=== PATIENT | male | born 1955 | race Caucasian/White ===

== ENCOUNTER 2019-11-04 09:25 | Inpatient (IN) | payer MEDICARE, OTHER ==
[2019-11-04 10:20] LABS: Basophils % (A) 0 %; Eosinophils # (A) 0.1 k/uL (0-0.7); Eosinophils % (A) 2 %; HCT 44.3 % (39.0-53.0); HGB 14.5 gm/dL (13.0-17.5); Lymphocytes # (A) 1.5 k/uL (1.0-4.8); Lymphocytes % (A) 27 %; MCH 31.8 pg (25.0-35.0); MCHC 32.8 g/dL (31.0-37.0); MCV 96.8 fL (80.0-100.0); Mean Platelet Volume 6.6; Monocytes # (A) 0.5 k/uL (0-1.0); Monocytes % (A) 8 %; Neutrophils # (A) 3.3 k/uL (1.3-7.7); Neutrophils % (A) 60 %; Platelet Count 206 k/uL (150-450); RBC 4.58 m/uL (4.30-5.90); RDW 12.5 % (11.5-15.5); WBC 5.5 k/uL (3.8-10.6)
[2019-11-04 10:31] LABS: ALT 20 U/L (4-49); AST 27 U/L (17-59); African American GFR (CKD) >90 (>60 ml/min/1.73 sqM); Albumin 3.9 g/dL (3.5-5.0); Alkaline Phosphatase 96 U/L (38-126); Anion Gap 8 mmol/L; Blood Urea Nitrogen 16 mg/dL (9-20); Calcium 8.9 mg/dL (8.4-10.2); Carbon Dioxide 23 mmol/L (22-30); Chloride 104 mmol/L (98-107); Glucose 117 mg/dL (74-99); Magnesium 1.6 mg/dL (1.6-2.3); Non-African American GFR(CKD) >90 (>60 ml/min/1.73 sqM); Phosphorus 2.6 mg/dL (2.5-4.5); Potassium 4.2 mmol/L (3.5-5.1); Sodium 135 mmol/L (137-145); Total Bilirubin 0.5 mg/dL (0.2-1.3)
--- NOTE | 2019-11-04 10:49 | CT ---
EXAMINATION TYPE: CT brain cspine wo con DATE OF EXAM: 11/04/2019 COMPARISON: MRI brain January 20, 2012. HISTORY: Fall injury with headache and neck pain. CT DLP: 1519 mGycm. Automated Exposure Control for Dose Reduction was Utilized. TECHNIQUE: CT scan of the head and cervical spine are performed without contrast. FINDINGS: There are old healed sandy hole or craniotomy defects bilaterally with clips There is no a cute intracranial hemorrhage or midline shift identified. Generalized cerebral atrophy greatest super iorly and areas of low attenuation in the white matter are redemonstrated. Air-fluid level right maxi llary sinus remains present on bilateral mild mucosal thickening. The remainder paranasal sinuses are clear. Globes are intact bilaterally. Cervical spine is visualized in its entirety from C1 through upper thoracic levels and demonstrates s traightened alignment without evidence of acute fracture or dislocation. Prevertebral soft tissue ap pears within normal limits. The C1-C2 articulation is within normal limits on the coronal images. V ertebral body heights are maintained. Disc space heights are fairly well-preserved. Tiny posterior di sc herniation mildly effacing anterior thecal sac at C4-C5 and C5-C6 levels on sagittal and axial jf ges. Thyroid gland is felt within normal limits. Lung apices show no pneumothorax. IMPRESSION: 1. There is no acute fracture or dislocation evident in the cervical spine. 2. No acute intracranial hemorrhage or midline shift is seen. Postsurgical changes with moderate cere bral atrophy and mild chronic small vessel ischemic change redemonstrated.
--- NOTE | 2019-11-04 10:50 | ED ---
General Adult HPI - General Chief complaint: Fall Stated complaint: Fall,head lac,shakey Time Seen by Provider: 11/04/19 09:37 Source: patient, RN notes reviewed, old records reviewed Mode of arrival: wheelchair Limitations: no limitations - History of Present Illness Initial comments: 64 male patient with seizure disorder presents to ED for evaluation of fall. Patient reports that for the 3 weeks or so he has been tremulous in his upper and lower extremities. Also reports that his gait has been off. Patient reports that today he was walking, slipped and fell forward hitting the right side of his head on a counter. He stated he did not lose consciousness. He is not on any blood thinners. Denies any areas of localized pain. Denies any headaches or changes in vision. Has not had a seizure in over 3 months. Systemic: Pt denies fatigue, fever/chills, rash. Pt denies weakness, night sweats, weight loss. Neuro: Pt denies headache, visual disturbances, syncope or pre-syncope. HEENT: Pt denies ocular discharge or irritation, otalgia, rhinorrhea, pharyngitis or notable lymphadenopathy. Cardiopulmonary: Pt denies chest pain, SOB, heart palpitations, dyspnea on exertion. Abdominal/GI: Pt denies abdominal pain, n/v/d. : Pt denies dysuria, burning w/ urination, frequency/urgency. Denies new onset urinary or bowel incontinence. MSK: Pt denies myalgia, loss of strength or function in extremities. Neuro: Pt denies new onset weakness, paresthesias. - Related Data Home Medications Medication Instructions Recorded Confirmed Donepezil HCl [Aricept] 10 mg PO DAILY 11/04/19 11/04/19 Ibuprofen 800 mg PO TID PRN 11/04/19 11/04/19 Lacosamide [Vimpat] 100 mg PO HS 11/04/19 11/04/19 Phenytoin Sodium Extended 100 mg PO DAILY@1200 11/04/19 11/04/19 [Dilantin] Phenytoin Sodium Extended 200 mg PO BID 11/04/19 11/04/19 [Dilantin] levETIRAcetam 2,000 mg PO BID 11/04/19 11/04/19 Allergies Allergy/AdvReac Type Severity Reaction Status Date / Time wasp Allergy Unknown Uncoded 06/01/20 11:27 Review of Systems ROS Statement: Those systems with pertinent positive or pertinent negative responses have been documented in the HPI. ROS Other: All systems not noted in ROS Statement are negative. Past Medical History Past Medical History: Seizure Disorder Additional Past Surgical History / Comment(s): brain surg at 9months old Past Psychological History: No Psychological Hx Reported Smoking Status: Never smoker Past Alcohol Use History: None Reported Past Drug Use History: None Reported General Exam - General Exam Comments Initial Comments: Constitutional: NAD, AOX3, Pt has pleasant affect. HEENT: NC/AT, trachea midline, neck supple, no lymphadenopathy. Posterior pharynx non erythematous, without exudates. External ears appear normal, without discharge. Mucous membranes moist. Eyes PERRLA, EOM intact. There is no scleral icterus. No pallor noted. Cardiopulmonary: RRR, no murmurs, rubs or gallops, no JVD noted. Lungs CTAB in anterior and posterior hartman. No peripheral edema. Abdominal exam: Abdomen soft and non-distended. Abdomen non-tender to palpation in all 4 quadrants. Bowel sounds active in LLQ. No hepatosplenomegaly. No ecchymosis Neuro: CN II-XII intact. Finger to nose is intact. Heel shaver resultant jerking movements. No nuchal rigidity. No raccon eyes, no ervin sign, no hemotympanum. No cervical spinal tenderness. MSK: No posterior calf tenderness bilaterally, homans sign negative bilaterally. Posterior tibialis and radial pulse +2 bilaterally. Sensation intact in upper and lower extremities. Full active ROM in upper and lower extremities, 5/5 stregnth. Limitations: no limitations Course Vital Signs 11/04/19 09:31 Temperature 98.1 F Pulse Rate 65 Respiratory 18 Rate Blood Pressure 168/96 O2 Sat by Pulse 99 Oximetry Medical Decision Making - Medical Decision Making 64 male patient with seizure disorder presents to ED for evaluation of fall. Patient reports that for the 3 weeks or so he has been tremulous in his upper and lower extremities. Also reports that his gait has been off. Patient reports that today he was walking, slipped and fell forward hitting the right side of his head on a counter. He stated he did not lose consciousness. He is not on any blood thinners. Denies any areas of localized pain. Denies any headaches or changes in vision. Has not had a seizure in over 3 months. Patient will signs are stable, afebrile. Physical exam displayed no focal deficit. However patient does have gait instability noted. Finger-nose intact however heel to shaver resultant jerking movements. Laboratory investigations are unremarkable. CT brain without contrast displayed no acute process. Patient administered aspirin will be admitted for possibility of cerebellar disease, posterior CVA. Symptoms have been ongoing for 3 weeks. Case discussed with Dr. Jon. Case accepted by Dr. Sewell. - Lab Data Result diagrams: 11/04/19 09:56 11/04/19 09:56 Lab Results 11/04/19 11/04/19 11/04/19 Range/Units 09:56 09:56 11:30 WBC 5.5 (3.8-10.6) k/uL RBC 4.58 (4.30-5.90) m/uL Hgb 14.5 (13.0-17.5) gm/dL Hct 44.3 (39.0-53.0) % MCV 96.8 (80.0-100.0) fL MCH 31.8 (25.0-35.0) pg MCHC 32.8 (31.0-37.0) g/dL RDW 12.5 (11.5-15.5) % Plt Count 206 (150-450) k/uL Neutrophils % 60 % Lymphocytes % 27 % Monocytes % 8 % Eosinophils % 2 % Basophils % 0 % Neutrophils # 3.3 (1.3-7.7) k/uL Lymphocytes # 1.5 (1.0-4.8) k/uL Monocytes # 0.5 (0-1.0) k/uL Eosinophils # 0.1 (0-0.7) k/uL Basophils # 0.0 (0-0.2) k/uL Sodium 135 L (137-145) mmol/L Potassium 4.2 (3.5-5.1) mmol/L Chloride 104 (98-107) mmol/L Carbon Dioxide 23 (22-30) mmol/L Anion Gap 8 mmol/L BUN 16 (9-20) mg/dL Creatinine 0.82 (0.66-1.25) mg/dL Est GFR (CKD-EPI)AfAm >90 (>60 ml/min/1.73 sqM) Est GFR (CKD-EPI)NonAf >90 (>60 ml/min/1.73 sqM) Glucose 117 H (74-99) mg/dL Calcium 8.9 (8.4-10.2) mg/dL Phosphorus 2.6 (2.5-4.5) mg/dL Magnesium 1.6 (1.6-2.3) mg/dL Total Bilirubin 0.5 (0.2-1.3) mg/dL AST 27 (17-59) U/L ALT 20 (4-49) U/L Alkaline Phosphatase 96 (38-126) U/L Total Protein 7.0 (6.3-8.2) g/dL Albumin 3.9 (3.5-5.0) g/dL Urine Color Light Yellow Urine Appearance Clear (Clear) Urine pH 5.0 (5.0-8.0) Ur Specific [place] 1.008 (1.001-1.035) Urine Protein Negative (Negative) Urine Glucose (UA) Negative (Negative) Urine Ketones Negative (Negative) Urine Blood Negative (Negative) Urine Nitrite Negative (Negative) Urine Bilirubin Negative (Negative) Urine Urobilinogen <2.0 (<2.0) mg/dL Ur Leukocyte Esterase Negative (Negative) Disposition Clinical Impression: Fall, Gait instability Narrative: r/o posterior cva Disposition: ADMITTED IP TO THIS HOSP Condition: Serious Is patient prescribed a controlled substance at d/c from ED?: No Referrals: Manuel Daly MD [Primary Care Provider] - 1-2 days
[2019-11-04 11:46] LABS: Appearance,Urine Clear (Clear); Bilirubin,Urine Negative (Negative); Blood,Urine Negative (Negative); Color,Urine Light Yellow; Glucose,Urine (UA) Negative (Negative); Ketones,Urine Negative (Negative); Leukocyte Esterase,Urine Negative (Negative); Nitrite,Urine Negative (Negative); Protein,Urine Negative (Negative); Specific Gravity,Urine 1.008 (1.001-1.035); Urobilinogen,Urine <2.0 mg/dL (<2.0)
[2019-11-04] MEDS ORDERED: ASPIRIN 325 MG TAB PO STA (13:06)
[2019-11-04] MEDS ORDERED: IBUPROFEN 800 MG TAB PO PRN (16:22)
[2019-11-04] MEDS: levETIRAcetam 500 MG TAB PO SCH (16:49)
[2019-11-04] MEDS ORDERED: PHENYTOIN SODIUM EXTENDED 100 MG CAP PO SCH (17:00)
[2019-11-04] MEDS ORDERED: ALPRAZolam 0.25 MG TAB PO PRN (17:00)
--- NOTE | 2019-11-04 18:01 | HP ---
HISTORY AND PHYSICAL DATE OF SERVICE: 11/04/2019 CHIEF COMPLAINT: Fall and weakness. HISTORY OF PRESENT ILLNESS: This 64-year-old gentleman with a past medical history of multiple medical problems, including history of seizure disorder, had brain surgery when he was 9 months old. The patient had spinal meningitis apparently. The patient also had significant weakness of the right side as well as seizure disorder subsequently. The patient apparently fell about 2 weeks ago. The patient has difficulty and pain in the left arm. The patient also had multiple falls subsequently. The patient came to [facility] and was admitted for evaluation and treatment. A posterior circulation TIA or CVA is being considered. The patient has significant tremors, also. The patient also had some gait instability. Initial evaluation, including cervical spine CT scan which was done in the ER, showed no acute intracranial abnormality. Post-surgical changes with moderate cerebral atrophy and chronic small-vessel ischemia were noted. There is no history of any fever, rigor or chills. No history of headache, loss of consciousness, seizures. No history of contact with COVID-19. PAST MEDICAL HISTORY: The patient's past medical history includes history of seizure disorder, history of brain surgery, which was when the patient was 9 months old for spinal meningitis. HOME MEDICATIONS: 1. Keppra 2 grams p.o. b.i.d. 2. Dilantin 200 mg p.o. b.i.d. 3. Ibuprofen 800 mg t.i.d. p.r.n. 4. Phenytoin 200 mg p.o. daily. 5. Vimpat 100 mg at bedtime. 6. Aricept 10 mg p.o. daily. ALLERGIES: WASPS. FAMILY HISTORY: No history of smoking. SOCIAL HISTORY: No history of smoking. No history of alcohol intake. REVIEW OF SYSTEMS: ENT: As mentioned earlier. CARDIOVASCULAR SYSTEM: No angina, palpitations. RESPIRATORY SYSTEM: No cough, hemoptysis. GI: No nausea, vomiting. : No dysuria or retention. NERVOUS SYSTEM: As mentioned earlier. ALLERGY/IMMUNOLOGY: No asthma, hayfever. MUSCULOSKELETAL: As mentioned earlier. HEMATOLOGY/ONCOLOGY: No history of anemia. ENDOCRINE: No history of diabetes, hypothyroidism. CONSTITUTIONAL: As mentioned earlier. DERMATOLOGY: Negative. RHEUMATOLOGY: Negative. PSYCHIATRY: As mentioned earlier. PHYSICAL EXAMINATION: Patient is alert and oriented x3. Pulse is 64, blood pressure 145/79, respirations 16, temperature 98 degrees, pulse ox 97% on room air. HEENT: Conjunctivae normal. Oral mucosa moist. NECK: No jugular venous distention. No carotid bruit. No lymph node enlargement. CARDIOVASCULAR SYSTEM: S1, S2 muffled. RESPIRATORY SYSTEM: Breath sounds diminished at the bases. A few scattered rhonchi. No crackles. ABDOMEN: Soft, non-tender. No mass palpable. LEGS: No edema. No swelling. Minimal tenderness in the left leg present. Otherwise, diffuse tremors present. Gait dysfunction also present diffusely weak. SKIN: No ulcer, rash, bleeding. JOINTS: No active deforming arthropathy. LYMPHATICS: No lymph node palpable in neck, axillae or groin. LAB INVESTIGATIONS: CBC within normal limits. Sodium 135. Glucose 117. ASSESSMENT: 1. Fall and gait dysfunction. Rule out a posterior circulation stroke or TIA. 2. Hyponatremia. 3. Increased random blood sugar. 4. History of seizure disorder. 5. History of brain surgery at 9 months old. 6. History of spinal meningitis. 7. History of tremors. 8. Post-surgical changes with moderate cerebral atrophy with chronic small-vessel ischemia on the CT scan of the brain. RECOMMENDATIONS AND DISCUSSION: In this 64-year-old gentleman who presented with multiple complex medical issues, we will monitor the patient closely, continue the current medications, continue symptomatic treatment. Will initiate the home medications. Check the seizure levels. Continue the telemetry. Neurology evaluation. Complete neurovascular workup, including 2D echo with doppler and carotid ultrasound. Prognosis guarded because of multiple complex medical issues. We will also obtain a PT/OT evaluation to evaluate the patient for possible ECF rehab. Further recommendations to follow. MMODL / IJN: [id number] /
--- NOTE | 2019-11-04 19:26 | US ---
EXAMINATION TYPE: US carotid duplex BILAT DATE OF EXAM: 11/04/2019 COMPARISON: Correlation CT brain same day CLINICAL HISTORY: 64-year-old male Stroke per order. TECHNIQUE: Carotid duplex ultrasound examination. Indirect Doppler criteria was utilized. FINDINGS: EXAM MEASUREMENTS: RIGHT: Peak Systolic Velocity (PSV) cm/sec ----- Right CCA: 99.8 ----- Right ICA: 109.0 ----- Right ECA: 162.1 ICA/CCA ratio: 1.1 RIGHT: End Diastole cm/sec ----- Right CCA: 16.9 ----- Right ICA: 28.2 ----- Right ECA: 22.3 LEFT: Peak Systolic Velocity (PSV) cm/sec ----- Left CCA: 94.2 ----- Left ICA: 92.7 ----- Left ECA: 158.2 ICA/CCA ratio: 1.0 LEFT: End Diastole cm/sec ----- Left CCA: 18.3 ----- Left ICA: 14.6 ----- Left ECA: 14.4 VERTEBRALS (direction of flow): Right Vertebral: Antegrade Left Vertebral: Antegrade Rhythm: Normal Nurses Assistant notes: Intimal thickening is seen bilateral carotid arteries. Elevated velocities bilater al ECAs. No significant stenosis seen. Minimal hyperechoic plaque seen right carotid bulb. Some prominent lymph nodes along the right neck measuring 2.0 x 1.4 x 0.7 cm and 1.8 x 1.5 x 0.7 cm. Prominent lymph node left side of the neck measuring 1.2 x 0.8 x 0.4 cm IMPRESSION: 1. No hemodynamically significant ICA stenosis on either side. 2. A couple borderline enlarged right-sided cervical lymph nodes measuring up to 1.5 cm short axis. T hese may be reactive/post inflammatory and should be followed clinically. If any enlargement is noted , the area can be rescanned. Criteria for Assigning % of Stenosis / Diameter reduction (Estimation based on the indirect measurements of the internal carotid artery velocities (ICA PSV). 1. Normal (no stenosis)=ICA PSV < 125 cm/s: ratio < 2.0: ICA EDV<40 cm/s. 2. Less than 50% stenosis=ICA PSV < 125 cm/s: ratio < 2.0: ICA EDV<40 cm/s. 3. 50 to 69% stenosis=ICA PSV of 125 to 230 cm/s: ration 2.0 ? 4.0: ICA EDV 40-100 cm/s. 4. Greater than 70% stenosis to near occlusion= ICA PSV > 230 cm/s: ratio > 4.0: ICA EDV > 100 cm/s. 5. Near occlusion= ICA PSV velocities may be low or undetectable: variable ratio and ICA EDV. 6. Total occlusion=unable to detect flow.
[2019-11-04] MEDS ORDERED: LACOSAMIDE 50 MG TABLET PO SCH (21:00)
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
[2019-11-04] MEDS: HEPARIN SODIUM,PORCINE 5,000 UNIT/ML 1 ML VIAL SQ SCH (21:19)
[2019-11-05] MEDS: levETIRAcetam 500 MG TAB PO SCH ×2 (05:50→16:55)
[2019-11-05] MEDS: PANTOPRAZOLE 40 MG TABLET PO SCH (05:50)
[2019-11-05 06:13] LABS: Basophils % (A) 1 %; Eosinophils # (A) 0.1 k/uL (0-0.7); Eosinophils % (A) 3 %; HCT 44.8 % (39.0-53.0); Lymphocytes % (A) 20 %; MCHC 33.5 g/dL (31.0-37.0); MCV 98.5 fL (80.0-100.0); Mean Platelet Volume 6.4; Monocytes # (A) 0.4 k/uL (0-1.0); Monocytes % (A) 8 %; Neutrophils # (A) 3.5 k/uL (1.3-7.7); Neutrophils % (A) 68 %; Platelet Count 190 k/uL (150-450); RBC 4.55 m/uL (4.30-5.90); RDW 12.7 % (11.5-15.5); WBC 5.1 k/uL (3.8-10.6)
[2019-11-05 06:34] LABS: African American GFR (CKD) >90 (>60 ml/min/1.73 sqM); Anion Gap 7 mmol/L; Blood Urea Nitrogen 16 mg/dL (9-20); Calcium 9.1 mg/dL (8.4-10.2); Carbon Dioxide 24 mmol/L (22-30); Chloride 101 mmol/L (98-107); Glucose 116 mg/dL (74-99); Non-African American GFR(CKD) >90 (>60 ml/min/1.73 sqM); Potassium 4.2 mmol/L (3.5-5.1); Sodium 132 mmol/L (137-145)
[2019-11-05 06:58] LABS: Phenytoin (Dilantin) 32.9 ug/mL
[2019-11-05 07:21] LABS: Cholesterol 228 mg/dL (<200); HDL Cholesterol 79 mg/dL (40-60); LDL Cholesterol,Calculated 130 mg/dL (0-99); Triglycerides 94 mg/dL (<150)
[2019-11-05] MEDS ORDERED: DONEPEZIL 10 MG TAB PO SCH (09:00)
[2019-11-05] MEDS ORDERED: LACOSAMIDE 50 MG TABLET PO SCH (09:00)
[2019-11-05] MEDS: HEPARIN SODIUM,PORCINE 5,000 UNIT/ML 1 ML VIAL SQ SCH ×2 (09:42→20:02)
[2019-11-05] MEDS ORDERED: PHENYTOIN SODIUM EXTENDED 100 MG CAP PO SCH (12:00)
[2019-11-05] MEDS ORDERED: ASPIRIN 325 MG TAB PO SCH (12:00)
--- NOTE | 2019-11-05 17:04 | P.PN ---
Subjective Progress Note Date: 11/05/19 Patient states his balance has improved. He was able to walk to the bathroom on his own. No seizures. Objective - Vital Signs Vital signs: Vital Signs Temp 97.3 F L 11/05/19 16:00 Pulse 72 11/05/19 16:00 Resp 16 11/05/19 16:00 BP 177/66 11/05/19 16:00 Pulse Ox 95 11/05/19 16:00 Intake & Output 11/04/19 11/05/19 11/05/19 18:59 06:59 18:59 Output Total 1000 Balance -1000 Weight 98.883 kg 97.5 kg Output: Urine 1000 Straight 1000 Other: Voiding Method Toilet Urinal - Exam Patient's mentation is normal. Still has nystagmus looking to the right. Still with mild ataxia, better than yesterday. - Labs CBC & Chem 7: 11/05/19 05:32 11/05/19 05:32 Labs: Abnormal Lab Results - Last 24 Hours (Table) 11/04/19 11/05/19 Range/Units 09:56 05:32 Sodium 132 L (137-145) mmol/L Glucose 116 H (74-99) mg/dL Cholesterol 228 H (<200) mg/dL LDL Cholesterol, Calc 130 H (0-99) mg/dL HDL Cholesterol 79 H (40-60) mg/dL Phenytoin 36.2 H* 32.9 H* ug/mL Assessment and Plan Assessment: * Dilantin toxicity * Long-standing history of localization-related epilepsy. Plan: * Hold off on Dilantin, we will check daily Dilantin levels. Today the level is 32.9. * Patient will be resumed on Dilantin 200 mg twice a day, once his levels comes <20. * Continue same dose of Keppra and Vimpat for now. * Patient is a fall risk due to Dilantin toxicity. * Carotid Doppler showed no stenosis. * B12 770, folate levels 11.0. * We will follow.
--- NOTE | 2019-11-05 18:00 | ECHOF ---
Referral Reason:Stroke MEASUREMENTS -------- HEIGHT: 165.1 cm WEIGHT: 97.1 kg BP: 167/79 IVSd: 1.4 cm (0.6 - 1.1) LVIDd: 3.4 cm (3.9 - 5.3) LVPWd: 1.5 cm (0.6 - 1.1) IVSs: 1.5 cm LVIDs: 2.4 cm LVPWs: 1.7 cm RVIDd: 3.2 cm (< 3.3) LAESV Index (A-L): 35.15 ml/m Ao Diam: 3.2 cm (2.0 - 3.7) AV Cusp: 1.7 cm (1.5 - 2.6) EPSS: 1.0 cm MV E Guillermo: 0.42 m/s MV DecT: 277 ms MV A Guillermo: 0.63 m/s MV E/A Ratio: 0.67 RAP: 5.00 mmHg RVSP: 16.70 mmHg MV EF SLOPE: 57.62 mm/s (70 - 150) MV EXCURSION: 15.27 mm (> 18.000) FINDINGS -------- Sinus rhythm. This was a technically difficult study with suboptimal apical views. The left ventricular size is normal. There is moderate concentric left ventricular hypertrophy. O verall left ventricular systolic function is normal with, an EF between 55 - 60 %. The diastolic fi lling pattern is normal for the age of the patient 7.39. The right ventricle is normal in size. LA is moderately dilated 34-39 ml/m2 The right atrial size is normal. 5.0mg of Lumason was utilized for enhancement of images Interatrial and interventricular septum intact. The aortic valve is trileaflet and appears structurally normal. There is no evidence of aortic regu rgitation. There is no evidence of aortic stenosis. Uxwf-oo-wppihgwy mitral regurgitation is present. Mild tricuspid regurgitation present. There is no evidence of pulmonary hypertension. The right v entricular systolic pressure, as measured by Doppler, is 16.70mmHg. There is no pulmonic regurgitation present. The aortic root size is normal. IVC Not well visulized. There is no pericardial effusion. CONCLUSIONS -------- 1. Sinus rhythm. 2. This was a technically difficult study with suboptimal apical views. 3. The left ventricular size is normal. 4. There is moderate concentric left ventricular hypertrophy. 5. Overall left ventricular systolic function is normal with, an EF between 55 - 60 %. 6. The diastolic filling pattern is normal for the age of the patient 7.39 7. The right ventricle is normal in size. 8. LA is moderately dilated 34-39 ml/m2 9. The right atrial size is normal. 10. 5.0mg of Lumason was utilized for enhancement of images 11. Interatrial and interventricular septum intact. 12. The aortic valve is trileaflet and appears structurally normal. 13. There is no evidence of aortic regurgitation. 14. There is no evidence of aortic stenosis. 15. [id number]-wgpmtfdr mitral regurgitation is present. 16. Mild tricuspid regurgitation present. 17. There is no evidence of pulmonary hypertension. 18. The right ventricular systolic pressure, as measured by Doppler, is 16.70mmHg. 19. There is no pulmonic regurgitation present. 20. The aortic root size is normal. 21. IVC Not well visulized. 22. There is no pericardial effusion. TRAVEL PROFESSIONAL: Vero Gomez RDCS
[2019-11-05] MEDS: DONEPEZIL 10 MG TAB PO SCH (20:02)
[2019-11-05] MEDS: LACOSAMIDE 50 MG TABLET PO SCH (20:03)
--- NOTE | 2019-11-05 22:54 | P.PN ---
Progress Note - Text Progress Note Date: 11/05/19 Presenting complaint: Recurrent falls Interval history: This is [address] simms who presented with rather shaky jittery and falling. Patient is found to be in Dilantin toxicity. It was held. Today-pain sitting up. Tolerating a breakfast. Bit shaky and jittery. Dilantin levels are starting to come down. Review of systems: Was done for constitutional, cardiovascular, GI, pulmonary. Neurological relevant finding as above Active Medications Alprazolam (Xanax) 0.25 mg PO TID PRN PRN Reason: Anxiety Aspirin (Aspirin) 325 mg PO DAILY [facility] Last Admin: 11/05/19 16:55 Dose: Not Given Documented by: Donepezil HCl (Aricept) 10 mg PO [facility] Last Admin: 11/05/19 20:02 Dose: Not Given Documented by: Heparin Sodium (Porcine) (Heparin) 5,000 unit SQ Q12HR [facility] Last Admin: 11/05/19 20:02 Dose: Not Given Documented by: Ibuprofen (Motrin) 800 mg PO TID PRN PRN Reason: Pain Lacosamide (Vimpat) 100 mg PO [facility] Last Admin: 11/05/19 20:03 Dose: Not Given Documented by: Levetiracetam (Keppra) 2,000 mg PO BID@0400,1600 [facility] Last Admin: 11/05/19 16:55 Dose: 2,000 mg Documented by: Pantoprazole Sodium (Protonix) 40 mg PO AC-BRKFST [facility] Last Admin: 11/05/19 05:50 Dose: 40 mg Documented by: On examination: VITAL SIGNS: 97.7, 74, 18, 143/98, 96% room air GENERAL APPEARANCE: Sitting at the edge of the bed, somewhat jittery HEENT: Normal external appearance of nose and ear. Oral cavity normal EYES: Pupils equal. Conjunctiva normal. NECK: JVD not raised. Mass not palpable. RESPIRATORY: Respiratory effort normal. Lungs clear to auscultation. CARDIOVASCULAR: First and second sounds normal. No edema. ABDOMEN: Soft. Liver and spleen not palpable. No tenderness. No mass palpable. PSYCHIATRY: Alert and oriented x3. Mood and affect normal. NEUROLOGICAL: Somewhat restless and jittery moving all 4 limbs. INVESTIGATIONS, reviewed in the clinical context: White count 5.1 hemoglobin 15 potassium 4.2 creatinine 0.78 Phenytoin 32.9 Admission labs: Phenytoin 36.2 COVID-19 patient-not detected Computed tomography scan of the brain-no stroke Carotid Doppler-positive for stenosis -2-D echocardiogram-EF 55-60% with LVH Assessment: -Acute Dilantin toxicity manifesting S restlessness leading to falls -Left ventricular hypertrophy -Epilepsy -Obesity BMI 35.8 Plan: Patient Dilantin has been held. Follow clinically. And with neurology.
[2019-11-06] MEDS: levETIRAcetam 500 MG TAB PO SCH ×2 (04:39→14:55)
[2019-11-06] MEDS: PANTOPRAZOLE 40 MG TABLET PO SCH (04:39)
[2019-11-06 06:37] LABS: Basophils % (A) 0 %; Eosinophils # (A) 0.2 k/uL (0-0.7); Eosinophils % (A) 4 %; HCT 46.4 % (39.0-53.0); HGB 15.5 gm/dL (13.0-17.5); Lymphocytes % (A) 20 %; MCH 33.4 pg (25.0-35.0); MCHC 33.3 g/dL (31.0-37.0); MCV 100.1 fL (80.0-100.0); Mean Platelet Volume 6.3; Monocytes # (A) 0.5 k/uL (0-1.0); Monocytes % (A) 9 %; Neutrophils # (A) 3.3 k/uL (1.3-7.7); Neutrophils % (A) 65 %; Platelet Count 208 k/uL (150-450); RBC 4.64 m/uL (4.30-5.90); RDW 12.6 % (11.5-15.5); WBC 5.2 k/uL (3.8-10.6)
[2019-11-06 06:44] LABS: African American GFR (CKD) >90 (>60 ml/min/1.73 sqM); Anion Gap 6 mmol/L; Blood Urea Nitrogen 16 mg/dL (9-20); Calcium 8.8 mg/dL (8.4-10.2); Carbon Dioxide 27 mmol/L (22-30); Chloride 101 mmol/L (98-107); Glucose 118 mg/dL (74-99); Non-African American GFR(CKD) 87 (>60 ml/min/1.73 sqM); Potassium 4.1 mmol/L (3.5-5.1); Sodium 134 mmol/L (137-145)
[2019-11-06] MEDS: ENOXAPARIN 40 MG/0.4 ML SYRINGE SQ SCH (08:13)
[2019-11-06 09:45] LABS: Phenytoin (Dilantin) 31.5 ug/mL
[2019-11-06] MEDS: LACOSAMIDE 50 MG TABLET PO SCH (14:57)
[2019-11-06] MEDS: DONEPEZIL 10 MG TAB PO SCH (14:59)
--- NOTE | 2019-11-06 16:16 | P.PN ---
Subjective Progress Note Date: 11/06/19 Patient states his balance has improved. He was able to walk to the bathroom on his own. No seizures. Objective - Vital Signs Vital signs: Vital Signs Temp 99.7 F H 11/06/19 15:01 Pulse 74 11/06/19 15:01 Resp 18 11/06/19 15:01 BP 159/96 11/06/19 15:01 Pulse Ox 95 11/06/19 15:01 Intake & Output 11/05/19 11/06/19 11/06/19 18:59 06:59 18:59 Intake Total 360 Output Total 1100 Balance -1100 360 Weight 94.937 kg Intake: Oral 360 Output: Urine 1100 Other: Voiding Method Toilet Toilet Toilet # Voids 1 1 1 # Bowel Movements 1 - Exam Patient's mentation is normal. Still has nystagmus looking to the right. Still with mild ataxia, better than yesterday. Patient was slightly paranoid yesterday, stating that the doctors wants to keep him in the hospital so that they can "earn some money". - Labs CBC & Chem 7: 11/06/19 06:20 11/06/19 06:20 Labs: Abnormal Lab Results - Last 24 Hours (Table) 11/06/19 11/06/19 Range/Units 06:20 06:20 MCV 100.1 H (80.0-100.0) fL Sodium 134 L (137-145) mmol/L Glucose 118 H (74-99) mg/dL Phenytoin 31.5 H* ug/mL Assessment and Plan Assessment: * Dilantin toxicity * Long-standing history of localization-related epilepsy. Plan: * Hold off on Dilantin, we will check daily Dilantin levels. Today the level is 31.5. * Patient will be resumed on Dilantin 200 mg twice a day, once his levels comes <20. * Continue same dose of Keppra and Vimpat for now. * Patient is a fall risk due to Dilantin toxicity. * Carotid Doppler showed no stenosis. * B12 770, folate levels 11.0. * We will follow.
--- NOTE | 2019-11-06 16:53 | P.PN ---
Progress Note - Text Progress Note Date: 11/06/19 Presenting complaint: Recurrent falls Interval history: This is [address] simms who presented with rather shaky jittery and falling. Patient is found to be in Dilantin toxicity. It was held. Today-she shakiness and better today. Request the patient walking with the physical therapy. Still a bit unsteady. The better than yesterday. Dilantin level was still high. Review of systems: Was done for constitutional, cardiovascular, GI, pulmonary. Neurological relevant finding as above Active Medications Alprazolam (Xanax) 0.25 mg PO TID PRN PRN Reason: Anxiety Donepezil HCl (Aricept) 10 mg PO [facility] Last Admin: 11/06/19 14:59 Dose: 10 mg Documented by: Enoxaparin Sodium (Lovenox) 40 mg SQ DAILY [facility] Last Admin: 11/06/19 08:13 Dose: 40 mg Documented by: Ibuprofen (Motrin) 800 mg PO TID PRN PRN Reason: Pain Lacosamide (Vimpat) 100 mg PO [facility] Last Admin: 11/06/19 14:57 Dose: 100 mg Documented by: Levetiracetam (Keppra) 2,000 mg PO BID@0400,1600 [facility] Last Admin: 11/06/19 14:55 Dose: 2,000 mg Documented by: Pantoprazole Sodium (Protonix) 40 mg PO -BRKFST [facility] Last Admin: 11/06/19 04:39 Dose: 40 mg Documented by: On examination: VITAL SIGNS: 97.4, 75, 18, 142/87, 96% on room air GENERAL APPEARANCE: The shaky today. HEENT: Normal external appearance of nose and ear. Oral cavity normal EYES: Pupils equal. Conjunctiva normal. NECK: JVD not raised. Mass not palpable. RESPIRATORY: Respiratory effort normal. Lungs clear to auscultation. CARDIOVASCULAR: First and second sounds normal. No edema. ABDOMEN: Soft. Liver and spleen not palpable. No tenderness. No mass palpable. PSYCHIATRY: Alert and oriented x3. Mood and affect normal. NEUROLOGICAL: Still a bit unsteady with walking though better than yesterday. INVESTIGATIONS, reviewed in the clinical context: Potassium 4.1 Dilantin 31.5 Admission labs: Phenytoin 36.2 COVID-19 patient-not detected Computed tomography scan of the brain-no stroke Carotid Doppler-positive for stenosis -2-D echocardiogram-EF 55-60% with LVH Assessment: -Acute Dilantin toxicity manifesting S restlessness leading to falls-improving slowly -Acute kidney dysfunction from above -Left ventricular hypertrophy -Epilepsy -Obesity BMI 35.8 Plan: -Patient came to go home. Explained to him at length importance of staying back. Continue to hold Dilantin. Recheck level in the morning. Follow with nephrology.
[2019-11-07] MEDS: PANTOPRAZOLE 40 MG TABLET PO SCH (04:57)
[2019-11-07] MEDS: levETIRAcetam 500 MG TAB PO SCH (04:58)
[2019-11-07 06:54] LABS: Basophils % (A) 0 %; Eosinophils # (A) 0.1 k/uL (0-0.7); Eosinophils % (A) 1 %; HCT 42.9 % (39.0-53.0); HGB 14.2 gm/dL (13.0-17.5); Lymphocytes # (A) 1.1 k/uL (1.0-4.8); Lymphocytes % (A) 11 %; MCH 32.1 pg (25.0-35.0); MCHC 33.2 g/dL (31.0-37.0); MCV 96.7 fL (80.0-100.0); Mean Platelet Volume 6.5; Monocytes # (A) 0.7 k/uL (0-1.0); Monocytes % (A) 7 %; Neutrophils # (A) 7.9 k/uL (1.3-7.7); Neutrophils % (A) 79 %; Platelet Count 207 k/uL (150-450); RBC 4.44 m/uL (4.30-5.90); RDW 12.6 % (11.5-15.5)
[2019-11-07 07:31] LABS: African American GFR (CKD) >90 (>60 ml/min/1.73 sqM); Anion Gap 6 mmol/L; Blood Urea Nitrogen 16 mg/dL (9-20); Calcium 8.4 mg/dL (8.4-10.2); Carbon Dioxide 26 mmol/L (22-30); Chloride 99 mmol/L (98-107); Glucose 121 mg/dL (74-99); Non-African American GFR(CKD) >90 (>60 ml/min/1.73 sqM); Phenytoin (Dilantin) 26.4 ug/mL; Sodium 131 mmol/L (137-145)
[2019-11-07] MEDS: ENOXAPARIN 40 MG/0.4 ML SYRINGE SQ SCH (08:49)
[2019-11-07 11:10] VITALS: TEMP 98.3
[2019-11-07 14:21] VITALS: BP 145/86; PULSE 90; RESP 18
--- NOTE | 2019-11-07 14:36 | US ---
EXAMINATION TYPE: US venous doppler duplex LE LT DATE OF EXAM: 11/07/2019 2:25 PM COMPARISON: NONE CLINICAL HISTORY: left leg pain since fall at home. Left leg pain, patient on blood thinners SIDE PERFORMED: Left TECHNIQUE: The lower extremity deep venous system is examined utilizing real time linear array sonog brenda with graded compression, doppler sonography and color-flow sonography. VESSELS IMAGED: External Iliac Vein (EIV) Common Femoral Vein Deep Femoral Vein Greater Saphenous Vein * Femoral Vein Popliteal Vein Small Saphenous Vein * Proximal Calf Veins (* superficial vessels) Left Leg: Appears negative for DVT IMPRESSION: 1. No diagnostic evidence of DVT as visualized.
--- NOTE | 2019-11-07 17:59 | P.PN ---
Subjective Progress Note Date: 11/07/19 Patient states his balance has improved. He was able to walk to the bathroom on his own. No seizures. Ready to go home. Objective - Vital Signs Vital signs: Vital Signs Temp 98.3 F 11/07/19 08:00 Pulse 90 11/07/19 12:00 Resp 18 11/07/19 12:00 BP 145/86 11/07/19 12:00 Pulse Ox 98 11/07/19 12:00 Intake & Output 11/06/19 11/07/19 11/07/19 18:59 06:59 18:59 Intake Total 480 240 Balance 480 240 Weight 94.5 kg Intake: Oral 480 240 Other: Voiding Method Toilet Toilet Toilet # Voids 1 1 1 # Bowel Movements 1 0 - Exam Patient's mentation is normal. Still has nystagmus looking to the right. Still with mild ataxia, better than yesterday. Patient walking in the room and hallway, appears steady. - Labs CBC & Chem 7: 11/07/19 06:21 11/07/19 06:21 Labs: Abnormal Lab Results - Last 24 Hours (Table) 11/07/19 11/07/19 Range/Units 06:21 06:21 Neutrophils # 7.9 H (1.3-7.7) k/uL Sodium 131 L (137-145) mmol/L Glucose 121 H (74-99) mg/dL Assessment and Plan Assessment: * Dilantin toxicity * Long-standing history of localization-related epilepsy. Plan: * Hold off on Dilantin, we will check daily Dilantin levels. Today the level is 26.4. * Patient will resume Dilantin 200 mg twice a day from a.m.. * Continue same dose of Keppra and Vimpat for now. * Patient recommended to have Dilantin level checked in 1-2 weeks. * Carotid Doppler showed no stenosis. * B12 770, folate levels 11.0. * Neurologically clear for discharge.
--- NOTE | 2019-11-07 22:20 | P.DS ---
Providers Date of admission: 11/04/19 13:06 Expected date of discharge: 11/07/19 Attending physician: Ayush Guevara Consults: 11/04/19 13:45 Consult Physician Urgent Consulting Provider: Donna Wang Consult Reason/Comments: gait instability 3 weeks, r/o posterior cva Do you want consulting provider notified?: Yes Primary care physician: Manuel Daly [facility] Course: Presenting complaint: Recurrent falls Interval history: This is [address] daly who presented with rather shaky jittery and falling. Patient is found to be in Dilantin toxicity. It was held. Today-doing much better. Dilantin levels to 26. Discussed with Dr. Camara. Patient will be discharged. Patient to resume Dilantin from tomorrow morning. Spoke to patient's sister over the phone. Patient uses a walker. Gait is much improved. Discussed with the physical therapy. Dose of Dilantin has been cut back. Discussion and discharge planning more than 35 minutes Consultation: Dr. Camara from neurology On examination: VITAL SIGNS: 98.3, 79, 19, 120/70, 94% on room air GENERAL APPEARANCE: Sitting up at comfortable. HEENT: Normal external appearance of nose and ear. Oral cavity normal EYES: Pupils equal. Conjunctiva normal. NECK: JVD not raised. Mass not palpable. RESPIRATORY: Respiratory effort normal. Lungs clear to auscultation. CARDIOVASCULAR: First and second sounds normal. No edema. ABDOMEN: Soft. Liver and spleen not palpable. No tenderness. No mass palpable. PSYCHIATRY: Alert and oriented x3. Mood and affect normal. NEUROLOGICAL: Greatly improved jitteriness today.. INVESTIGATIONS, reviewed in the clinical context: Dilantin 26.4 Admission labs: Phenytoin 36.2 COVID-19 patient-not detected Computed tomography scan of the brain-no stroke Carotid Doppler-positive for stenosis -2-D echocardiogram-EF 55-60% with LVH Assessment: -Acute Dilantin toxicity manifesting S restlessness leading to significantly improved. -Acute kidney dysfunction from above -Left ventricular hypertrophy -Epilepsy -Obesity BMI 35.8 Disposition: Home Patient Condition at Discharge: Stable Plan - Discharge Summary Discharge Rx Participant: No New Discharge Prescriptions: Continue Ibuprofen 800 mg PO TID PRN PRN Reason: Pain levETIRAcetam 2,000 mg PO BID@0400,1600 Phenytoin Sodium Extended [Dilantin] 200 mg PO BID@0400,1600 Lacosamide [Vimpat] 100 mg PO HS Donepezil HCl [Aricept] 10 mg PO DAILY Discontinued Phenytoin Sodium Extended [Dilantin] 100 mg PO DAILY@1200 Discharge Medication List Donepezil HCl [Aricept] 10 mg PO DAILY 11/04/19 [History] Ibuprofen 800 mg PO TID PRN 11/04/19 [History] Lacosamide [Vimpat] 100 mg PO HS 11/04/19 [History] Phenytoin Sodium Extended [Dilantin] 200 mg PO BID@0400,1600 11/04/19 [History] levETIRAcetam 2,000 mg PO BID@0400,1600 11/04/19 [History] Follow up Appointment(s)/Referral(s): neurologistdr [Other] - 1 Week (Please make an appointment with a neurologist in about a week) [facility], [NON-STAFF] - Manuel Daly MD [Primary Care Provider] - 11/12/19 11:45 am Patient Instructions/Handouts: Fall Prevention for Older Adults (DC), Fall Prevention (DC) Activity/Diet/Wound Care/Special Instructions: resume new dose of dilantin from tomorrow fall precautions Discharge Disposition: HOME SELF-CARE
== END 2019-11-07 16:01 | disposition home health service (06) | DRG 683 ==
LOC: EEVIPCON 09:25 → EC 09:25 → 3SCARD 13:06
PROVIDERS: ADMIT Hospitalist; ATTEND Hospitalist
DX: N17.9 Acute kidney failure, unspecified (principal); G40.209 Localization-related (focal) (partial) symptomatic epilepsy and epileptic syndromes with complex partial seizures, not intractable, without status epilepticus; I67.82 Cerebral ischemia; E87.1 Hypo-osmolality and hyponatremia; N14.1 Nephropathy induced by other drugs, medicaments and biological substances; G31.9 Degenerative disease of nervous system, unspecified; Z11.59 Encounter for screening for other viral diseases; R45.1 Restlessness and agitation; I51.7 Cardiomegaly; E66.9 Obesity, unspecified; R26.89 Other abnormalities of gait and mobility; S01.91XA Laceration without foreign body of unspecified part of head, initial encounter; R25.1 Tremor, unspecified; M79.602 Pain in left arm; R29.6 Repeated falls; T42.0X5A Adverse effect of hydantoin derivatives, initial encounter; W01.0XXA Fall on same level from slipping, tripping and stumbling without subsequent striking against object, initial encounter; Z68.35 Body mass index [BMI] 35.0-35.9, adult; Z79.899 Other long term (current) drug therapy; Z86.61 Personal history of infections of the central nervous system; Z98.890 Other specified postprocedural states; Z91.038 Other insect allergy status; Z82.49 Family history of ischemic heart disease and other diseases of the circulatory system
CPT/HCPCS: 36415; 70450; 72125; 80048; 80053; 80061; 80177; 80185; 81003; 82607; 82746; 83735; 84100; 85025; 93005; 93306; 93880; 99285